=== PATIENT | female | born 1935 | race Caucasian/White ===

== ENCOUNTER 2017-12-19 06:48 | Inpatient (IN) | payer BC, MEDICARE ==
[~2017-12-19] VITALS: Ht 160 cm; Wt 65.8 kg
[2017-12-19] MEDS ORDERED: metroNIDAZOLE 500 mg/NS 100 ML PREMIX IV ONE (07:00)
[2017-12-19] MEDS ORDERED: ALVIMOPAN 12 MG CAPSULE PO ONE ×2 (07:00→07:29)
[2017-12-19] MEDS ORDERED: LEVOFLOXACIN 500 MG/D5W 100 ML IV ONE ×2 (07:00→15:00)
[2017-12-19] MEDS ORDERED: CLINDAMYCIN PHOS 600 MG/ D5W 50 ML PREMIX IV ONE (08:00)
[2017-12-19] MEDS ORDERED: POLYMYXIN 500,000/BACIT.10,000 UNITS in NS IRR 1 L IR ONE (08:33)
[2017-12-19] MEDS ORDERED: CAT1PAT TD (08:59)
[2017-12-19] MEDS ORDERED: VERA120C2 PO (08:59)
[2017-12-19] MEDS ORDERED: ROCURONIUM BROMIDE 10 MG/ML (ZEMURON) IV ONE (09:20)
[2017-12-19] MEDS ORDERED: BUPIVACAINE LIPOSOME/PF 266 MG/20 ML VIAL INFIL ONE (09:20)
[2017-12-19] MEDS ORDERED: fentaNYL CITRATE 250 MCG/5 ML AMP IV ONE (09:20)
[2017-12-19] MEDS ORDERED: NS 100 ML BAG IV ONE (09:20)
[2017-12-19] MEDS ORDERED: DEXAMETHASONE SOD PHOSPHATE 4 MG/ML VIAL IVP ONE (09:20)
[2017-12-19] MEDS ORDERED: KETOROLAC TROMETHAMINE 30 MG VIAL IVP ONE (09:20)
[2017-12-19] MEDS ORDERED: LR 1,000 ML IV.SOLN IV ONE (09:20)
[2017-12-19] MEDS ORDERED: ONDANSETRON HCL 4 MG/2 ML VIAL IVP ONE (09:20)
[2017-12-19] MEDS ORDERED: MIDAZOLAM HCL 5 MG/5 ML VIAL IVP ONE (09:20)
[2017-12-19] MEDS ORDERED: SEVOFLURANE 15 MIN GAS INH ONE (09:20)
[2017-12-19] MEDS ORDERED: LR 1,000 ML IV SCH (10:43)
[2017-12-19] MEDS ORDERED: MEPERIDINE HCL/PF 25 MG/ML DISP.SYRIN IVP PRN (10:45)
[2017-12-19] MEDS ORDERED: HYDROmorphone 2 MG/ML VIAL IVP PRN ×2 (10:45)
[2017-12-19] MEDS ORDERED: HYDROmorphone 1 MG INJ. 1 MG/ML AMPUL IVP PRN ×2 (10:45→11:45)
[2017-12-19] MEDS ORDERED: HYDROcodone/ACETAMIN 5-325 MG TAB (NORCO/ VICODIN) PO PRN ×2 (11:45)
[2017-12-19] MEDS ORDERED: ACETAMINOPHEN 325 MG TABLET PO PRN (11:45)
[2017-12-19] MEDS ORDERED: ONDANSETRON HCL 4 MG/2 ML VIAL IVP PRN (11:45)
[2017-12-19 12:26] LABS: HEMATOCRIT 32.5 % (36-48); HEMOGLOBIN 10.8 g/dL (12.0-16.0)
[2017-12-19 12:29] LABS: ANION GAP 12 (5-15); CHLORIDE 104 mmol/L (98-107); GLUCOSE 143 mg/dL (70-99); POTASSIUM 3.2 mmol/L (3.5-5.1); SODIUM SERUM 140 mmol/L (136-145); UREA NITROGEN, BLOOD 13 mg/dL (8-21)
[2017-12-19 13:00] VITALS: BP_SYST 147
--- NOTE | 2017-12-19 13:05 | NUR ---
NOTE: PATIENT CAME IN FROM PACU. PATIENT IS ALERT AND ORIENTED. VITALS ARE STABLE. PATIENT NOT COMPLAINING OF PAIN AT MOMENT. IV FLUIDS INFUSING. PATIENT ON ROOM AIR. BOYER IS HANGING TO GRAVITY. INCENTIVE SPIROMETER AT BEDSIDE. ENCOURAGED PATIENT T O USE. DRESSING IS DRY AND INTACT. DAUGHTER AT BEDSIDE. BED ALARM IS ON AND CALL LIGHT IS IN REACH. WILL CONTINUE TO MONITOR.
[2017-12-19 13:48] VITALS: BP_SYST 145
[2017-12-19] MEDS: metroNIDAZOLE 500 mg/NS 100 ML IV SCH ×2 (15:06→21:49)
--- NOTE | 2017-12-19 15:14 | NUR ---
NOTE: HUNG ANTIBIOTICS FOR PATIENT. PATIENT NOT COMPLAINING OF PAIN AT MOMENT. PATIENT ON PHONE NOW TALKING TO SON. WILL CONTINUE TO MONITOR.
--- NOTE | 2017-12-19 16:49 | NUR ---
NOTE: HUNG SOME ANTIBIOTICS FOR PATIENT. PATIENT COMPLAINING OF A LITTLE DISCOMFORT IN RIBS. PATIENT SAID SHE DOESNT WANT ANY PAIN MEDICATION. DAUGHTER AT BEDSIDE. WILL CONTINUE TO MONITOR.
--- NOTE | 2017-12-19 18:49 | NUR ---
CLOSING NOTE: PATIENT IS ALERT AND ORIENTED X4. PATIENT IN BED NOT COMPLAINING OF PAIN. PATIENT HAS FLUIDS INFUSING. PATIENT NOT COMPLAINING OF SHORTNESS OF BREATH. PATIENT ON ROOM AIR. FAMILY AT BEDSIDE. ENCOURAGED PATIENT TO USE INCENTIVE SPIROMETER. DRESSING DRY AND INTACT. BOYER IS HANGING TO GRAVITY. PATIENT HAS SCD'S ON. BED ALARM IS ON AND CALL LIGHT IS IN REACH. WILL GIVE REPORT TO WOOD STRIP BLOCK FLOOR INSTALLER NURSE.
--- NOTE | 2017-12-19 19:45 | NUR ---
INITIAL NOTES RECEIVED PATIENT ON BED AWAKE AND RESTING, WATCHING TV WITH FAMILY ON THE BEDSIDE, BREATHING EVEN AND UNLABORED, NO SOB NOTED, MAINTAINED POSITION OF COMFORT, FALL AND SAFETY PRECAUTIONS IN PLACE, GIVEN EDUCATION. NO PAIN NOTED, DRESSING DRY INTACT ENCOURAGED DEEP BREATHING AND RELAXATION, EXPLAINED THE USE IF INCENTIVE SPIROMETER AND IS TOLERATING UP TO 1500ML VOL. EXPLAINED THE PLAN OF CARE AND VERBALIZED UNDERSTANDING, WITH IV INFUSING WELL, WILL CONTINUE TO MONITOR PATIENT CALL LIGHT WITHIN REACH.
[2017-12-19 20:00] VITALS: BP_SYST 134
--- NOTE | 2017-12-19 20:00 | NUR ---
NPO MAINTAINED PATIENT NPO PER MD'S ORDERS EXCEPT FOR MEDS, PATIENT GIVEN EDUCATION, PATIENT STATED UNDERSTANDING.
--- NOTE | 2017-12-19 20:30 | NUR ---
INCENTIVE SPIROMETER PATIENT GIVEN EDUCATION ON THE USE OF THE INCENTIVE SPIROMETER, TOLERATING 1500 ML VOL WILL CONTINUE TO MONITOR.
[2017-12-19] MEDS: ALVIMOPAN 12 MG CAPSULE PO SCH (21:48)
[2017-12-19] MEDS: FAMOTIDINE PF 20 MG/2 ML VIAL IVP SCH (21:49)
--- NOTE | 2017-12-19 22:23 | NUR ---
RN ROUNDS PATIENT SLEEPING AND RESTING NO PAIN NOTED, WILL CONTINUE TO MONITOR
--- NOTE | 2017-12-19 23:05 | NUR ---
ABDOMINAL BINDER ABDOMINAL BINDER PLACED, PATIENT TOLERATING WELL, DRESSING CLEAN DRY INTACT NO BLEEDING NOTED
--- NOTE | 2017-12-20 00:02 | NUR ---
RN ROUNDS PATIENT ON BED SLEEPING AND RESTING, NO SOB NOTED, SAFETY MAINTAINED ON STABLE CONDITION CALL LIGHT WITHIN REACH
[2017-12-20 01:06] VITALS: BP_SYST 133
[2017-12-20] MEDS: D5/0.45 NS 1,000 ML IV SCH ×2 (01:20→23:53)
--- NOTE | 2017-12-20 02:12 | NUR ---
RN ROUNDS PATIENT SLEEPING AND RESTING, BREATHING EVEN UNLABORED, ON STABLE CONDITION, SAFETY AND FALL PRECAUTIONS IN PLACE, WILL CONTINUE TO MONITOR CALL LIGHT WITHIN REACH
--- NOTE | 2017-12-20 04:03 | NUR ---
RN ROUNDS PATIENT AWAKE AND RESTING, BREATHING EVEN UNLABORED, NO PAIN NOTED ON STABLE CONDITION, SAFETY AND FALL PRECAUTIONS IN PLACE, WILL CONTINUE TO MONITOR CALL LIGHT WITHIN REACH
[2017-12-20 06:00] LABS: MONOCYTES # (AUTO) 1.5 K/uL (0.0-1.0)
[2017-12-20 06:05] LABS: ANION GAP 9 (5-15); CALCIUM 8.5 mg/dL (8.4-11.0); CHLORIDE 104 mmol/L (98-107); CREATININE 0.81 mg/dL (0.55-1.30); GLUCOSE 185 mg/dL (70-99); POTASSIUM 3.4 mmol/L (3.5-5.1); SODIUM SERUM 139 mmol/L (136-145); UREA NITROGEN, BLOOD 12 mg/dL (8-21)
[2017-12-20 06:13] LABS: ALANINE AMINOTRANSFERASE 27 U/L (12-78); ALBUMIN 3.1 g/dL (3.4-4.8); ASPARTATE AMINOTRANSFERASE 22 U/L (10-37); TOTAL BILIRUBIN 0.7 mg/dL (0.0-1.0)
[2017-12-20 06:29] LABS: BASOPHILS % (AUTO) 0.1 % (0.0-2.0); HEMOGLOBIN 11.2 g/dL (12.0-16.0); LYMPHOCYTES # (AUTO) 0.5 K/uL (1.0-5.5); LYMPHOCYTES % (AUTO) 3.4 % (20.5-51.5); MEAN CORPUSCULAR HEMOGLOBIN 30 pg (27-31); MEAN CORPUSCULAR HGB CONC 34 % (32-36); MEAN CORPUSCULAR VOLUME 87 fL (79.0-98.0); MONOCYTES % (AUTO) 9.2 % (1.7-9.3); NEUTROPHILS # (AUTO) 13.9 K/uL (1.8-7.7); NEUTROPHILS % (AUTO) 87.3 % (40.0-70.0); PLATELET COUNT (AUTO) 226 K/uL (130-430); RED BLOOD CELL COUNT(AUTO) 3.77 MIL/uL (4.2-6.2); RED CELL DISTRIBUTION WIDTH 13.3 % (9.0-15.0); WHITE BLOOD COUNT (AUTO) 15.9 K/uL (4.8-10.8)
--- NOTE | 2017-12-20 06:49 | NUR ---
CLOSING NOTES PATIENT ON BED AWAKE AND RESTING, READING A BOOK, BREATHING EVEN AND UNLABORED, NO SOB NOTED, MAINTAINED POSITION OF COMFORT, SAFETY AND FALL PRECAUTIONS NOTED. NO PAIN NOTED. EXPLAINED MEDICATIONS AND SIDE EFFECTS, STATED UNDERSTANDING, ENCOURAGED THE USE OF SCD'S GIVEN EDUCATION, PATIENT ABLE TO USE THE INCENTIVE SPIROMETER TOLERATING WELL, ABDOMINAL BINDER IN PLACE, DRESSING CLEAN DRY INTACT. ALL DUE MEDICATIONS GIVEN AND TOLERATED WELL, ALL NEEDS MET, KEPT PATIENT COMFORTABLE, KEPT PATIENT NPO, WILL GIVE REPORT TO AM NURSE WILL CONTINUE TO MONITOR CALL LIGHT WITHIN REACH.
--- NOTE | 2017-12-20 08:10 | NUR ---
OPENING NOTE LATE ENTRY DUE TO PT CARE: REPORT IS RECEIVED FROM PIZZA DELIVERY DRIVER NURSE AND CARE IS ENDORSED TO MYSELF. PT IS RECEIVED AWAKE, ALERT, AND ORIENTED x4. PT HAS BOYER CATHETER WITH APPROXIMATELY 200ML OF YELLOW URINE. PT HAS IV ACCESS IN LEFT AC 22G WITH D5 1/2NS @100ML/HR. ABDOMINAL DRESSING IS CLEAN, DRY, AND INTACT AND ABDOMINAL BINDER IS PRESENT. CURRENT NEEDS ARE MET. BED IS AT LOWEST POSITION, CALL LIGHT WITHIN REACH, THREE SIDE RAILS UP, BED ALARM IS ON. WILL CONTINUE TO MONITOR.
[2017-12-20] MEDS: ALVIMOPAN 12 MG CAPSULE PO SCH ×2 (09:13→22:22)
[2017-12-20] MEDS: FAMOTIDINE PF 20 MG/2 ML VIAL IVP SCH ×2 (09:13→22:22)
[2017-12-20] MEDS: ENOXAPARIN SODIUM 30 MG/0.3 ML SYRINGE SUBCUT SCH (09:20)
--- NOTE | 2017-12-20 09:36 | NUR ---
Nutrition Update Abdoul Scale 17 noted. Pt admitted for disease of intestine, unspecified. Diet: clear liquid BMI: 25.7 kg/m2 RD to follow per nutrition care standards.
--- NOTE | 2017-12-20 10:10 | NUR ---
ROUNDS LATE ENTRY DUE TO PT CARE: PT IS AWAKE AND ALERT. NO SIGNS OR SYMPTOMS OF DISTRESS OR SOB NOTED. PT DENIES ANY PAIN. BOYER CATHETER WAS REMOVED WITH APPROXIMATELY 400ML OF URINE. CURRENT NEEDS ARE MET. BED IS AT LOWEST POSITION, CALL LIGHT WITHIN REACH, THREE SIDE RAILS UP, BED ALARM IS ON. WILL CONTINUE TO MONITOR.
[2017-12-20 11:23] VITALS: BP_SYST 137
--- NOTE | 2017-12-20 12:10 | NUR ---
ROUNDS LATE ENTRY DUE TO PT CARE: PT IS AWAKE AND ALERT. NO SIGNS OR SYMPTOMS OF DISTRESS OR SOB NOTED. PT DENIES ANY PAIN. PHYSICAL THERAPY WAS WORKING WITH PT. CURRENT NEEDS ARE MET. BED IS AT LOWEST POSITION, CALL LIGHT WITHIN REACH, THREE SIDE RAILS UP, BED ALARM IS ON. WILL CONTINUE TO MONITOR.
--- NOTE | 2017-12-20 13:00 | NUR ---
PT HAS VOIDED URINE
[2017-12-20] MEDS: METOCLOPRAMIDE HCL 10 MG/2 ML VIAL IVP SCH ×3 (13:24→23:57)
--- NOTE | 2017-12-20 14:10 | NUR ---
ROUNDS LATE ENTRY DUE TO PT CARE: PT IS AWAKE AND ALERT. NO SIGNS OR SYMPTOMS OF DISTRESS OR SOB NOTED. PT DENIES ANY PAIN. DAUGHTER IS AT BEDSIDE. PT IS A SELF GAINES. CURRENT NEEDS ARE MET. BED IS AT LOWEST POSITION, CALL LIGHT WITHIN REACH, THREE SIDE RAILS UP, BED ALARM IS ON. WILL CONTINUE TO MONITOR.
[2017-12-20 15:09] VITALS: BP_SYST 143
--- NOTE | 2017-12-20 16:00 | NUR ---
ROUNDS PT IS SLEEPING. NO SIGNS OR SYMPTOMS OF DISTRESS OR SOB NOTED. CURRENT NEEDS ARE MET. BED IS AT LOWEST POSITION, CALL LIGHT WITHIN REACH, THREE SIDE RAILS UP, BED ALARM IS ON. WILL CONTINUE TO MONITOR.
--- NOTE | 2017-12-20 18:18 | NUR ---
CLOSING NOTE PT IS RESTING IN BED. NO SIGNS OR SYMPTOMS OF DISTRESS OR SOB NOTED. PT DENIES ANY PAIN. PT IS PASSING GAS AND HAD A BOWEL MOVEMENT. CURRENT NEEDS ARE MET. BED IS AT LOWEST POSITION, CALL LIGHT WITHIN REACH, THREE SIDE RAILS UP, BED ALARM IS ON. WILL CONTINUE TO MONITOR.
[2017-12-20 19:55] VITALS: BP_SYST 131
--- NOTE | 2017-12-20 20:00 | NUR ---
INITIAL NOTES: PATIENT IN BED AWAKE ,ORIENTED X4. FAMILIES AT BEDSIDE. VITAL SIGNS TAKEN AND RECORDED. SALINE LOCK TO LEFT AC PATENT. DRESSING DRY AND INTACT TO MID ABDOMEN WITH BINDER. ON SCD. PULSES PRESENT TO BOTH FEET. CALL LIGHT WITHIN REACH. BED IN LOW POSITION FOR SAFETY. BED ALARM ON. VITAL SIGNS TAKEN AND RECORDED. STABLE. WILL MONITOR CLOSELY.
--- NOTE | 2017-12-20 20:10 | NUR ---
MEDS ADMIN: ALL DUE MEDS GIVEN ,NO DIFFICULTY. PASSING GAS. INCENTIVE SPIROMETER DONE UP TO 1000-1200ONLY.
--- NOTE | 2017-12-20 22:05 | NUR ---
ASSISTED TO BATHROOM WITH WALKER TO VOID .DID WELL.
--- NOTE | 2017-12-20 23:30 | NUR ---
CHECKED IV ORDERS TWICE. NO ORDER TO D/C IVF. REQUEST CIGARETTE PACKAGE EXAMINER LARRY TO R CHECK IVF ORDER. HAVE NOT SEEN ANY ORDER TO D/C.
--- NOTE | 2017-12-20 23:45 | NUR ---
RESTARTED IVF OF D51/2NS AT 100ML/HR. ORDERED,TO LEFT AC,SITE CLEAR AND WITH BLOOD RETURN.
[2017-12-21] VITALS: BP_SYST 124
--- NOTE | 2017-12-21 02:00 | NUR ---
PATIENT WOKE UP. ASSISTED TO BATHROOM TO VOID. DENIES PAIN. BINDER INTACT.
--- NOTE | 2017-12-21 05:00 | NUR ---
ASSISTED TO BATHROOM WITH WALKER STEADILY. HAD MOD. LOOSE ,BLACKISH STOOL. VOIDED WELL.DENIES PAIN. STATED SLEEPY.
[2017-12-21] MEDS: METOCLOPRAMIDE HCL 10 MG/2 ML VIAL IVP SCH ×2 (05:49→12:28)
--- NOTE | 2017-12-21 06:30 | NUR ---
PATIENT CALLED TO GO TO BATHROOM .ASSISTED WITH WALKER. DID WELL.
--- NOTE | 2017-12-21 07:00 | NUR ---
CLOSING: DENIES SEVERE POST OP PAIN. NO PAIN MEDS WHOLE SHIFT.VOIDEDX4 AND HAD LOOSE STOOL X2. IVF CONTINUE TO INFUSE. NO N/V. TOLERATING CLEAR LIQUIDS. REPORT GIVEN TO AM RN FOR CONTINUITY OF CARE. ALL NEEDS MET.
--- NOTE | 2017-12-21 07:30 | NUR ---
am rounds: patient awake lying on the bed. midline dressing clean and dry and abdominal binder on. bedside report given by night nurse sang. call light with in reach. bed locked at lowest position. bed alarm on.
[2017-12-21 08:47] VITALS: BP_SYST 135
[2017-12-21] MEDS: ALVIMOPAN 12 MG CAPSULE PO SCH (08:54)
[2017-12-21] MEDS: FAMOTIDINE PF 20 MG/2 ML VIAL IVP SCH (08:55)
[2017-12-21] MEDS: ENOXAPARIN SODIUM 30 MG/0.3 ML SYRINGE SUBCUT SCH (08:59)
[2017-12-21] MEDS: D5/0.45 NS 1,000 ML IV SCH (09:08)
--- NOTE | 2017-12-21 10:00 | NUR ---
physical therapy: physical therapy assisted patient to ambulate in the hallway,tolerated well.
[2017-12-21 12:20] VITALS: BP_SYST 118
--- NOTE | 2017-12-21 12:32 | NUR ---
MEAL: LUNCH SERVED BY CNA. RANKIN. GRAD DAUGHTER AT THE BEDSIDE.
--- NOTE | 2017-12-21 13:25 | NUR ---
surgeon rounds: patient seen by dr joe with orders dc home,f/u in his office in 1 week,may shower and continue all home meds.
[2017-12-21 14:07] VITALS: BP_SYST 119
[2017-12-21 14:25] VITALS: BP_SYST 119
--- NOTE | 2017-12-21 15:00 | NUR ---
dc notes: transitional care documents given to patient and verbalized understanding of instructions. iv removed,dry gauze applied,no bleeding noted.personal belongings completed and send home with the patient.accompanied home by her granddaughter patient in stable condition.
--- NOTE | 2017-12-26 11:22 | NUR ---
Discharge Follow Up Phone Call [facility] phoned patient, . Patient stated that she was doing fine. She does not need her pain medication. She has a follow up appointment with her surgeon, Dr Corbin, on 01/02/18. She had questions as to how much the out of pocket cost would be for the day after her insurance on 12/20/17. [employer] phoned Jojo, property insurance inspector, who is unable to give an estimate. She spoke with patient while she was in the hospital. [facility] phoned patient back with that information and provided Jojo's contact information. Patient stated her insurance benefits stopped after her . She and her daughter are following up with the Social Security office. Patient had no other questions or concerns.
== END 2017-12-21 15:00 | disposition home or self-care (01) | DRG 330 ==
LOC: SMU 06:48 → SDS 06:48 → SMU 13:43
PROVIDERS: ADMIT Colon & Rectal Surgery; ATTEND Colon & Rectal Surgery
PROC: 0WQF0ZZ Repair Abdominal Wall, Open Approach (ICD-10-PCS; 2017-12-19)
PROC: 0DTF0ZZ Resection of Right Large Intestine, Open Approach (ICD-10-PCS; principal; 2017-12-19 09:15)
DX: C18.0 Malignant neoplasm of cecum (principal); K43.0 Incisional hernia with obstruction, without gangrene; K62.5 Hemorrhage of anus and rectum; I10 Essential (primary) hypertension; M81.0 Age-related osteoporosis without current pathological fracture; E78.5 Hyperlipidemia, unspecified; K66.0 Peritoneal adhesions (postprocedural) (postinfection); Z88.6 Allergy status to analgesic agent; Z88.0 Allergy status to penicillin; Z88.2 Allergy status to sulfonamides; Z90.49 Acquired absence of other specified parts of digestive tract; Z79.899 Other long term (current) drug therapy
CPT/HCPCS: 36415; 80048; 80053; 85018-TC; 85025; 87081; 88307; 88309; 97110-GP; 97116-GP; 97530-GP; C9290; J1100; J1650; J1885; J1956; J2250; J2405; J2765; J3010; J3490; J7120